=== PATIENT | male | born 1990 | race Caucasian/White ===

== ENCOUNTER 2018-01-06 15:07 | Emergency (ER) | payer SELFPAY ==
[~2018-01-06] VITALS: Ht 180.3 cm; Wt 113.4 kg
[2018-01-06 15:11] VITALS: BP 126/75
--- NOTE | 2018-01-06 15:58 | NUR ---
PT AMBULATED TO ER CHAIR C
--- NOTE | 2018-01-06 16:00 | NUR ---
PATIENT PRESENTS TO ED WITH LOWER BACK PAIN S/P PULLING WIRES AT WORK YESTERDAY . PT STATES . DENIES N/V/D; SKIN IS PINK/WARM/DRY; AAOX4 WITH EVEN AND STEADY GAIT; LUNGS CLEAR BL; HR EVEN AND REGULAR; PT DENIES ANY FEVER, CP, SOB, OR COUGH AT THIS TIME; PATIENT STATES PAIN OF 7/10 AT THIS TIME; VSS; PATIENT POSITIONED FOR COMFORT; ER MD MADE AWARE OF PT STATUS.
[2018-01-06] MEDS ORDERED: CYCLOBENZAPRINE 10 MG TAB PO ONE (16:15)
[2018-01-06] MEDS ORDERED: IBUPROFEN 800 MG TAB PO ONE (16:15)
--- NOTE | 2018-01-06 17:22 | NUR ---
DISCHARGED BY DR. CLEVELAND
== END 2018-01-06 17:22 | disposition home or self-care (01) ==
LOC: MED 15:07
DX: S39.012A Strain of muscle, fascia and tendon of lower back, initial encounter (principal); S63.612A Unspecified sprain of right middle finger, initial encounter; S63.614A Unspecified sprain of right ring finger, initial encounter; X50.0XXA Overexertion from strenuous movement or load, initial encounter; Y93.89 Activity, other specified; Y92.69 Other specified industrial and construction area as the place of occurrence of the external cause; Y99.0 Civilian activity done for income or pay
CPT/HCPCS: 72110; 73130; 99284

== ENCOUNTER 2021-03-23 14:48 | Emergency (ER) | payer SELFPAY ==
[~2021-03-23] VITALS: Ht 182.9 cm; Wt 126.1 kg
[2021-03-23 15:07] VITALS: BP 132/72
--- NOTE | 2021-03-23 15:13 | NUR ---
PT AMBULATORY OT LOBBY TO A/W BED
--- NOTE | 2021-03-23 15:34 | NUR ---
DR PRASAD AT BEDSIDE EXAMINING PT
[2021-03-23] MEDS ORDERED: MECLIZINE 25 MG TAB PO ONE (15:40)
--- NOTE | 2021-03-23 15:48 | NUR ---
LAB AT BEDSIDE
--- NOTE | 2021-03-23 15:57 | NUR ---
30 Y/O MALE C/O HEADACHE WITH DIZZINESS X WEEK. PT STATES 8/10 PAIN. DENIES N/V/D; SKIN IS PINK/WARM/DRY; AAOX4 WITH EVEN AND STEADY GAIT; LUNGS CLEAR BL; HR EVEN AND REGULAR; PT DENIES ANY FEVER, CP, SOB, OR COUGH AT THIS TIME; VSS; PATIENT POSITIONED FOR COMFORT; HOB ELEVATED; BEDRAILS UP X2; BED DOWN. ER MD MADE AWARE OF PT STATUS. MEDHX- DENIES NKA
[2021-03-23 16:03] LABS: BASOPHILS % (AUTO) 0.4 % (0.0-2.0); EOSINOPHILS # (AUTO) 0.1 K/uL (0-0.4); EOSINOPHILS % (AUTO) 2.4 % (0.0-4.0); HEMATOCRIT 46.4 % (36-52); HEMOGLOBIN 16.6 g/dL (12.0-18.0); LYMPHOCYTES % (AUTO) 33.4 % (20.5-51.1); MEAN CORPUSCULAR HEMOGLOBIN 33 pg (27-31); MEAN CORPUSCULAR HGB CONC 36 g/dL (33-37); MEAN CORPUSCULAR VOLUME 93.2 fL (80-94); MONOCYTES # (AUTO) 0.5 K/uL (0.8-1.0); NEUTROPHILS # (AUTO) 3.3 K/uL (1.8-7.7); NEUTROPHILS % (AUTO) 55.8 % (42.2-75.2); PLATELET COUNT (AUTO) 169 K/uL (140-450); RED BLOOD CELL COUNT(AUTO) 4.98 MIL/uL (4.20-6.10); WHITE BLOOD COUNT (AUTO) 5.9 K/uL (4.8-10.8)
[2021-03-23 16:20] LABS: ALBUMIN 3.9 g/dL (3.4-5.0); ANION GAP 18.6 (8-16); CARBON DIOXIDE 22.3 mmol/L (21-32); CREATININE 1.1 mg/dL (0.6-1.3); POTASSIUM 3.9 mmol/L (3.5-5.1); TOTAL BILIRUBIN 0.4 mg/dL (0.0-1.0)
--- NOTE | 2021-03-23 16:23 | NUR ---
Patient taken to CT scan via wheelchair by tech.
--- NOTE | 2021-03-23 16:36 | NUR ---
PT RETURNED FROM CT
[2021-03-23] MEDS ORDERED: PRED20TA5 PO (17:29)
[2021-03-23] MEDS ORDERED: MECL-303 PO (17:29)
[2021-03-23 17:48] VITALS: BP 132/72
--- NOTE | 2021-03-23 17:48 | NUR ---
Patient discharged with v/s stable. Written and verbal after care instructions given and explained. Patient alert, oriented and verbalized understanding of instructions. Ambulatory with steady gait. All questions addressed prior to discharge. ID band removed. Patient advised to follow up with PMD. Rx of MECLIZINE HCL AND PREDNISONE given. Patient educated on indication of medication including possible reaction and side effects. Opportunity to ask questions provided and answered.
== END 2021-03-23 17:48 | disposition home or self-care (01) ==
LOC: MED 14:48
DX: H83.09 Labyrinthitis, unspecified ear (principal); R42 Dizziness and giddiness; R51.9 Headache, unspecified; Z79.899 Other long term (current) drug therapy
CPT/HCPCS: 36415; 70450; 80053; 85025; 99284; J8597

== ENCOUNTER 2022-12-21 16:51 | Emergency (ER) | payer SELFPAY ==
[~2022-12-21] VITALS: Ht 182.9 cm; Wt 99.1 kg
[~2022-12-21 16:51] MED LIST: MECL-303 PO; PRED20TA5 PO
[2022-12-21 16:54] VITALS: BP 141/79
--- NOTE | 2022-12-21 17:01 | NUR ---
Patient ambulated to bed 6.
[2022-12-21 17:38] LABS: APPEARANCE,URINE CLEAR (CLEAR); BILIRUBIN,URINE NEGATIVE (NEGATIVE); BLOOD, URINE NEGATIVE (NEGATIVE); COLOR,URINE YELLOW (YELLOW); LEUKOCYTE ESTERASE ,URINE NEGATIVE (NEGATIVE); NITRITE, URINE NEGATIVE (NEGATIVE); PH,URINE 7.5 (5.0-9.0); UGLUCOSE NEGATIVE (NEGATIVE)
--- NOTE | 2022-12-21 17:38 | NUR ---
Patient being evaluated by Dr. Chen at bedside.
[2022-12-21] MEDS ORDERED: KETOROLAC 30 MG/ML VIAL IM ONE (17:45)
--- NOTE | 2022-12-21 18:16 | NUR ---
Lab at bedside.
[2022-12-21 18:34] LABS: BASOPHILS # (AUTO) 0.1 K/uL (0.00-0.22); BASOPHILS % (AUTO) 1.2 % (0.0-2.0); EOSINOPHILS # (AUTO) 0.2 K/uL (0-0.4); EOSINOPHILS % (AUTO) 2.5 % (0.0-4.0); HEMOGLOBIN 16.3 g/dL (12.0-18.0); LYMPHOCYTES # (AUTO) 2.3 K/uL (2.0-11.5); LYMPHOCYTES % (AUTO) 32.4 % (20.5-51.1); MEAN CORPUSCULAR HEMOGLOBIN 33 pg (27-31); MEAN CORPUSCULAR HGB CONC 35 g/dL (33-37); MEAN CORPUSCULAR VOLUME 92.2 fL (80-94); MONOCYTES # (AUTO) 0.5 K/uL (0.8-1.0); MONOCYTES % (AUTO) 7.1 % (1.7-9.3); NEUTROPHILS # (AUTO) 4.1 K/uL (1.8-7.7); NEUTROPHILS % (AUTO) 56.8 % (42.2-75.2); PLATELET COUNT (AUTO) 191 K/uL (140-450); RED BLOOD CELL COUNT(AUTO) 4.99 MIL/uL (4.20-6.10); RED CELL DISTRIBUTION WIDTH 13.1 % (11.6-13.7); WHITE BLOOD COUNT (AUTO) 7.2 K/uL (4.8-10.8)
[2022-12-21 18:54] LABS: ALBUMIN 4.1 g/dL (3.4-5.0); ANION GAP 10.3 (8-16); CARBON DIOXIDE 27.6 mmol/L (21-32); CREATININE 0.8 mg/dL (0.6-1.3); POTASSIUM 3.9 mmol/L (3.5-5.1); TOTAL BILIRUBIN 0.2 mg/dL (0.0-1.0)
--- NOTE | 2022-12-21 19:20 | NUR ---
Report given to MARILYN Delgado for transfer of care.
--- NOTE | 2022-12-21 20:00 | NUR ---
Patient discharged with v/s stable. Written and verbal after care instructions given and explained. Patient verbalized understanding. Ambulatory with steady gait. All questions addressed prior to discharge. Advised to follow up with PMD.
== END 2022-12-21 20:00 | disposition home or self-care (01) ==
LOC: MED 16:51
DX: R10.84 Generalized abdominal pain (principal); R30.0 Dysuria; R50.9 Fever, unspecified; Z79.899 Other long term (current) drug therapy; Z98.890 Other specified postprocedural states
CPT/HCPCS: 36415; 74176; 80053; 81003; 83690; 85025; 96372; 99285; J1885

== ENCOUNTER 2024-05-16 12:20 | Emergency (ER) | payer OTHER ==
[~2024-05-16] VITALS: Ht 180.3 cm; Wt 125.4 kg
[~2024-05-16 12:20] MED LIST changes: +AMOX500C25 PO; +CARB15DR61 OT
[2024-05-16 12:39] VITALS: BP 127/68; PULSE 55; RESP 18; TEMP 97.9; O2SAT 96
[2024-05-16] MEDS ORDERED: ATA25 PO (13:29)
[2024-05-16] MEDS ORDERED: SULF-58 PO (13:29)
[2024-05-16] MEDS ORDERED: PRED20TA5 PO (13:29)
== END 2024-05-16 13:44 | disposition home or self-care (01) ==
LOC: MED 12:20
DX: L25.9 Unspecified contact dermatitis, unspecified cause (principal); Z79.1 Long term (current) use of non-steroidal anti-inflammatories (NSAID); Z79.2 Long term (current) use of antibiotics; Z79.899 Other long term (current) drug therapy
CPT/HCPCS: 99283